=== PATIENT | female | born 1975 | race Caucasian/White ===

== ENCOUNTER → 2016-06-04 | Outpatient (CLI) | payer MEDICAID ==
[2016-06-04 07:43] LABS: Basophils % (A) 1 %; CH 30.8; CHCM 32.8; Eosinophils # (A) 0.1 k/uL (0-0.7); Eosinophils % (A) 2 %; HCT 40.7 % (34.0-46.0); HDW 2.47; HGB 13.1 gm/dL (11.4-16.0); Luc # (Auto) 0.07; Luc % (Auto) 1; Lymphocytes # (A) 1.4 k/uL (1.0-4.8); Lymphocytes % (A) 21 %; MCH 30.5 pg (25.0-35.0); MCHC 32.2 g/dL (31.0-37.0); MCV 94.6 fL (80.0-100.0); Mean Platelet Volume 8.7; Monocytes # (A) 0.3 k/uL (0-1.0); Monocytes % (A) 5 %; Neutrophils # (A) 4.6 k/uL (1.3-7.7); Neutrophils % (A) 71 %; RDW 13.3 % (11.5-15.5); WBC 6.4 k/uL (3.8-10.6); WBC (Perox) 6.74
[2016-06-04 07:52] LABS: Partial Thromboplastin Time 27.9 sec (22.0-30.0); Prothrombin Time 10.3 sec (9.0-12.0)
== END | disposition home or self-care (01) ==
LOC: LABWHC1 07:22
PROVIDERS: ATTEND Family Medicine
DX: Z00.01 Encounter for general adult medical examination with abnormal findings (principal); R58 Hemorrhage, not elsewhere classified; R63.1 Polydipsia; E00.0 Congenital iodine-deficiency syndrome, neurological type
CPT/HCPCS: 36415; 80061; 82728; 82947; 84439; 84443; 85025; 85610; 85730

== ENCOUNTER → 2016-06-11 | Outpatient (CLI) | payer MEDICAID ==
--- NOTE | 2016-06-12 10:15 | MM ---
Reason for exam: screening (asymptomatic). Last mammogram was performed 1 year and 1 month ago. History: Patient is postmenopausal. Family history of breast cancer in paternal grandmother and breast cancer in maternal grandmother. Took hormonal contraceptives for 10 years. Physical Findings: A clinical breast exam by your physician is recommended on an annual basis and results should be correlated with mammographic findings. MG 3D Screening Mammo W/Cad Bilateral CC and MLO view(s) were taken. Prior study comparison: May 01, 2015, bilateral MG 3d diag mammo w/cad RANDAL. April 05, 2014, bilateral MG diagnostic mammo w CAD RANDAL. There are scattered fibroglandular densities. There is no discrete abnormality. No significant changes when compared with prior studies. ASSESSMENT: Negative, BI-RAD 1 RECOMMENDATION: Routine screening mammogram of both breasts in 1 year.
== END | disposition home or self-care (01) ==
LOC: RADMAMWWP 07:50
PROVIDERS: ATTEND Family Medicine
DX: Z12.31 Encounter for screening mammogram for malignant neoplasm of breast (principal)
CPT/HCPCS: 77063; G0202

== ENCOUNTER → 2016-09-14 | Outpatient (CLI) | payer MEDICAID | END | disposition home or self-care (01) | LOC: LABWHC1 07:27 | PROVIDERS: ATTEND Family Medicine | DX: R58 Hemorrhage, not elsewhere classified (principal) | CPT/HCPCS: 36415; 82533 ==

== ENCOUNTER 2017-02-12 15:12 | Observation (INO) | payer MEDICAID, OTHER ==
[2017-02-12] MEDS ORDERED: SODIUM CHLORIDE 0.9% 1,000 ML IV ONE (15:28)
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
[2017-02-12 16:05] LABS: Appearance,Urine Clear (Clear); Basophils % (A) 1 %; Bilirubin,Urine Negative (Negative); CH 31.9; CHCM 33.7; Eosinophils # (A) 0.1 k/uL (0-0.7); Eosinophils % (A) 2 %; Glucose,Urine (UA) Negative (Negative); HCT 38.3 % (34.0-46.0); HDW 2.29; HGB 12.8 gm/dL (11.4-16.0); Ketones,Urine Negative (Negative); Leukocyte Esterase,Urine Negative (Negative); Luc % (Auto) 2; Lymphocytes # (A) 1.1 k/uL (1.0-4.8); Lymphocytes % (A) 21 %; MCH 31.9 pg (25.0-35.0); MCHC 33.6 g/dL (31.0-37.0); MCV 95.2 fL (80.0-100.0); Mean Platelet Volume 8.6; Monocytes # (A) 0.3 k/uL (0-1.0); Monocytes % (A) 6 %; Neutrophils # (A) 3.7 k/uL (1.3-7.7); Neutrophils % (A) 68 %; Nitrite,Urine Negative (Negative); PH, Urine 5.5 (5.0-8.0); Protein,Urine Trace (Negative); RBC 4.02 m/uL (3.80-5.40); RDW 14.3 % (11.5-15.5); Specific Gravity,Urine 1.023 (1.001-1.035); UA Billing (MACRO vs. MICRO) CHEM; Urobilinogen,Urine <2.0 mg/dL (<2.0); WBC 5.4 k/uL (3.8-10.6); WBC (Perox) 5.52
[2017-02-12 16:17] LABS: Anion Gap 9 mmol/L; Blood Urea Nitrogen 17 mg/dL (7-17); Calcium 9.2 mg/dL (8.4-10.2); Carbon Dioxide 23 mmol/L (22-30); Chloride 107 mmol/L (98-107); Glucose 82 mg/dL (74-99); Non-African American GFR(MDRD) >60 (>60 ml/min/1.73 sqM); Potassium 4.3 mmol/L (3.5-5.1); Sodium 139 mmol/L (137-145)
--- NOTE | 2017-02-12 16:39 | XR ---
EXAMINATION TYPE: XR chest 2V DATE OF EXAM: 02/12/2017 COMPARISON: Prior chest x-ray 11/29/2012 HISTORY: TECHNIQUE: Frontal and lateral views of the chest are obtained. FINDINGS: There is no focal air space opacity, pleural effusion, or pneumothorax seen. The cardiac silhouette size is stable, patient is rotated which may accentuate the appearance. There are overly ing cardiac leads. The osseous structures are intact. IMPRESSION: No acute cardiopulmonary process.
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
[2017-02-12 17:07] LABS: Glucose,Whole Blood 80 mg/dL (75-99)
[2017-02-12] MEDS ORDERED: NALOXONE 0.4 MG/ML 1 ML VIAL IV PRN (17:13)
[2017-02-12] MEDS ORDERED: QUEtiapine 400 MG TAB PO SCH (21:45)
[2017-02-12] MEDS: lamoTRIgine 100 MG TAB PO SCH (22:13)
[2017-02-12] MEDS: TOPIRAMATE 25 MG TAB PO SCH (22:13)
[2017-02-12] MEDS: FLUoxetine HCL 20 MG CAP PO SCH (22:13)
[2017-02-13 08:16] VITALS: RESP 16
[2017-02-13] MEDS: FLUoxetine HCL 20 MG CAP PO SCH (08:28)
[2017-02-13] MEDS: lamoTRIgine 100 MG TAB PO SCH (08:28)
[2017-02-13] MEDS: TOPIRAMATE 25 MG TAB PO SCH (08:28)
[2017-02-13] MEDS: ENOXAPARIN 40 MG/0.4 ML SYRINGE SQ SCH ×2 (08:29→08:30)
[2017-02-13 08:43] LABS: Basophils % (A) 1 %; CH 30.4; CHCM 31.5; Eosinophils # (A) 0.1 k/uL (0-0.7); Eosinophils % (A) 2 %; HCT 40.3 % (34.0-46.0); HDW 2.26; HGB 12.8 gm/dL (11.4-16.0); Luc % (Auto) 2; Lymphocytes # (A) 1.5 k/uL (1.0-4.8); Lymphocytes % (A) 25 %; MCH 30.8 pg (25.0-35.0); MCHC 31.8 g/dL (31.0-37.0); MCV 96.9 fL (80.0-100.0); Monocytes # (A) 0.3 k/uL (0-1.0); Monocytes % (A) 5 %; Neutrophils # (A) 3.9 k/uL (1.3-7.7); Neutrophils % (A) 66 %; RBC 4.16 m/uL (3.80-5.40); RDW 13.4 % (11.5-15.5); WBC 5.9 k/uL (3.8-10.6); WBC (Perox) 6.02
[2017-02-13 09:15] LABS: Anion Gap 10 mmol/L; Blood Urea Nitrogen 11 mg/dL (7-17); Calcium 9.4 mg/dL (8.4-10.2); Carbon Dioxide 25 mmol/L (22-30); Chloride 107 mmol/L (98-107); Glucose 111 mg/dL (74-99); Non-African American GFR(MDRD) 59 (>60 ml/min/1.73 sqM); Sodium 142 mmol/L (137-145)
[2017-02-13 12:10] VITALS: BP 107/67; PULSE 71; TEMP 98.1
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
--- NOTE | 2017-02-14 14:27 | DS ---
DISCHARGE SUMMARY DATE OF DISCHARGE: 02/13/2017. DATE OF SERVICE: February 13 2017. ATTENDING NOTE: This patient seen and examined by me. I discussed with my nurse practitioner Ms. Bender. For more details see my H&P, the patient doing better. EXAM: Lungs are clear. CARDIOVASCULAR: First and second sounds normal. No neurological deficits The patient to follow up with family doctor. Patient has near-syncope probably from exhaustion. MMODL / IJN: [id number] /
== END 2017-02-13 13:55 | disposition home or self-care (01) ==
LOC: EC 15:12 → 3OBS 17:16
PROVIDERS: ADMIT Hospitalist; ATTEND Hospitalist
DX: R55 Syncope and collapse (principal); R53.83 Other fatigue; R09.81 Nasal congestion; F31.9 Bipolar disorder, unspecified; F41.9 Anxiety disorder, unspecified; G25.81 Restless legs syndrome; Z68.42 Body mass index [BMI] 45.0-49.9, adult; E66.01 Morbid (severe) obesity due to excess calories; M79.7 Fibromyalgia; E03.9 Hypothyroidism, unspecified; G43.909 Migraine, unspecified, not intractable, without status migrainosus; G47.33 Obstructive sleep apnea (adult) (pediatric); Z79.899 Other long term (current) drug therapy; Z79.01 Long term (current) use of anticoagulants; K21.9 Gastro-esophageal reflux disease without esophagitis; Z82.49 Family history of ischemic heart disease and other diseases of the circulatory system; V48.0XXA Car driver injured in noncollision transport accident in nontraffic accident, initial encounter; Y92.488 Other paved roadways as the place of occurrence of the external cause; R73.9 Hyperglycemia, unspecified
CPT/HCPCS: 36415; 70450; 71020; 80048; 80306; 81003; 84484; 85025; 93005; 93880; 96360; 96361; 99285

== ENCOUNTER 2018-07-07 17:41 | Emergency (ER) | payer MEDICAID ==
[2018-07-07 18:07] VITALS: RESP 18
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
--- NOTE | 2018-07-07 19:38 | ED ---
Lower Extremity Injury HPI - General Chief Complaint: Extremity Injury, Lower Stated Complaint: Foot injury Time Seen by Provider: 07/07/18 18:14 Source: patient Mode of arrival: ambulatory Limitations: no limitations - History of Present Illness Initial Comments: 42-year-old female presenting today for chief complaint of left ankle injury. Patient states she slipped on ice earlier today rolling her left ankle. Patient denies any pain in the knee, she did state she fell on her bottom, denies any back or neck pain. She denies any head or neck injury. Patient denies any chest pain, dizziness or shortness of breath prior to falling. Patient admitted to left ankle swelling. She states pain increased with ambulation. Patient states she is able to range however this is painful. Patient denies any numbness, tingling or loss sensation. Patient denies any coolness or pallor of the extremity. Patient concerned of fracture and presents for evaluation. Upon arrival patient is ambulatory however limping, not fully weightbearing on the left side. Patient denies any recent fever, chills, shortness of breath, chest pain, back pain, abdominal pain, nausea or vomiting, numbness or tingling, dysuria or hematuria, constipation or diarrhea, headaches or visual changes, or any other complaints. Pt took ibuprofen prior to arrival. - Related Data Home Medications Medication Instructions Recorded Confirmed FLUoxetine HCL [PROzac] 80 mg PO DAILY 02/21/16 02/12/17 lamoTRIgine [LaMICtal] 200 mg PO BID 02/21/16 02/12/17 rOPINIRole HCL 0.5 mg PO HS 02/21/16 02/12/17 QUEtiapine [SEROquel] 400 mg PO HS 02/12/17 02/12/17 Topiramate 50 mg PO BID 02/12/17 02/12/17 Previous Rx's Medication Instructions Recorded Enoxaparin [Lovenox] 40 mg SQ DAILY syr 02/13/17 Allergies Allergy/AdvReac Type Severity Reaction Status Date / Time No Known Allergies Allergy Verified 07/07/18 18:02 Review of Systems ROS Statement: Those systems with pertinent positive or pertinent negative responses have been documented in the HPI. ROS Other: All systems not noted in ROS Statement are negative. Past Medical History Past Medical History: GERD/Reflux, Sleep Apnea/CPAP/BIPAP Additional Past Medical History / Comment(s): MIGRAINES, NO CPAP USED-UNABLE TO TOLERATE IT, History of Any Multi-Drug Resistant Organisms: None Reported Past Surgical History: Section, Cholecystectomy, Hysterectomy Additional Past Surgical History / Comment(s): 3 C-SEC, 3 SEPARATE SX TO COMPLETE TOTAL HYSTERECTOMY, COLONOSCOPY/POLYPS Past Anesthesia/Blood Transfusion Reactions: No Reported Reaction Past Psychological History: Anxiety, Bipolar, Depression Smoking Status: Never smoker Past Alcohol Use History: None Reported Past Drug Use History: None Reported - Past Family History Father Family Medical History: Hypertension Mother Additional Family Medical History / Comment(s): OVARIAN CYST General Exam - General Exam Comments Initial Comments: General: The patient is awake and alert, in no distress, and does not appear acutely ill. Eye: Pupils are equal, round and reactive to light, extra-ocular movements are intact. No nystagmus. There is normal conjunctiva bilaterally. No signs of icterus. Ears, nose, mouth and throat: There are moist mucous membranes and no oral lesions. Neck: The neck is supple, there is no tenderness or JVD. Cardiovascular: There is a regular rate and rhythm. No murmur, rub or gallop is appreciated. Respiratory: Lungs are clear to auscultation, respirations are non-labored, breath sounds are equal. No wheezes, stridor, rales, or rhonchi. Gastrointestinal: Soft, non-distended, non-tender abdomen without masses or organomegaly noted. There is no rebound or guarding present. Musculoskeletal: No midline tenderness to palpation of the entire length the spinal column. No paravertebral tenderness. Upon inspection of the ankles bilaterally there is mild soft tissue swelling of the left at the lateral malleolus. There is no pain to palpation the forefoot. There is pain to palpation of the lateral malleolus, no medial malleolus pain. Patient has no pain with patient of the proximal tibia fibula. Patient is able to fully range at the ankle, knee hip and digits of the feet equal bilaterally. Patient does admit to tenderness with range of motion at the left ankle. Patient can ambulate and weight bear however she states this is painful.Strength 5/5 of the LE proximal and distal to injuyr equal b/l. Sensation intact of the LE both proximal and distal to injury equal in comparison b/l. DP pulses equal bilaterally 2+. Neurological: A&O x 3. CN II-XII intact, There are no obvious motor or sensory deficits. Coordination appears grossly intact. Speech is normal. Skin: Skin is warm and dry and no rashes or lesions are noted. Psychiatric: Cooperative, appropriate mood & affect, normal judgment. Limitations: no limitations Course Vital Signs 07/07/18 07/07/18 18:02 19:57 Temperature 98.5 F 97.3 F L Pulse Rate 79 78 Respiratory 18 18 Rate Blood Pressure 116/68 142/65 O2 Sat by Pulse 98 97 Oximetry Medical Decision Making - Medical Decision Making 42-year-old female presenting today for chief complaint of left ankle pain. X- ray negative for acute osseous injury. Patient neurovascular intact. History concerning for left ankle sprain. Patient placed in posterior mold splint. Patient given orthopedic follow-up. Patient discharged stable condition. Discussed case reviewed imaging with attending provider Dr. Sparrow. Patient agreeable plan discharge. Return for wrist were discussed at length the patient who verbalizes understanding. Disposition Clinical Impression: Left ankle sprain Disposition: HOME SELF-CARE Condition: Good Instructions (If sedation given, give patient instructions): Ankle Sprain (ED) , R.I.C.E. Treatment (ED) Additional Instructions: Please use medication as discussed. Please follow-up with family doctor in the next 2 days, if symptoms persist please follow-up with orthopedic surgery. Please return to emergency room if the symptoms increase or worsen or for any other concerns. Is patient prescribed a controlled substance at d/c from ED?: No Referrals: West Lara DO [Primary Care Provider] - 1-2 days Hiren Alexander DO [Doctor of Osteopathic Medicine] - 1-2 days Time of Disposition: 19:37
[2018-07-07 19:58] VITALS: BP 142/65; PULSE 78; TEMP 97.3
== END 2018-07-07 20:00 | disposition home or self-care (01) ==
LOC: EC 17:41
DX: S93.402A Sprain of unspecified ligament of left ankle, initial encounter (principal); G43.909 Migraine, unspecified, not intractable, without status migrainosus; F41.9 Anxiety disorder, unspecified; F32.9 Major depressive disorder, single episode, unspecified; G47.30 Sleep apnea, unspecified; Z99.89 Dependence on other enabling machines and devices; Z79.899 Other long term (current) drug therapy; W00.0XXA Fall on same level due to ice and snow, initial encounter; Y92.009 Unspecified place in unspecified non-institutional (private) residence as the place of occurrence of the external cause
CPT/HCPCS: 29515; 99283

== ENCOUNTER 2020-10-11 07:44 | Day surgery (SDC) | payer MEDICAID ==
[2020-10-09 12:15] VITALS: BMI 52.0
[2020-10-11] MEDS: LACTATED RINGERS 1,000 ML IV SCH ×2 (07:59→08:15)
[2020-10-11] MEDS ORDERED: LIDOCAINE 1% (10MG/ML) FOR IV START INTRADERMA ONE (08:10)
[2020-10-11 08:15] VITALS: TEMP 97.1
[2020-10-11] MEDS ORDERED: PROPOFOL 10 MG/ML 20 ML VIAL IV ONE (08:25)
[2020-10-11] MEDS ORDERED: LIDOCAINE 1% INJ 10MG/ML (20 ML MDV) ONE (08:25)
--- NOTE | 2020-10-11 08:44 | P.PCN ---
Date of Procedure: 10/11/20 Procedure(s) Performed: Brief history: Patient is a pleasant 44-year-old white female scheduled for an elective upper endoscopy as well as colonoscopy as a part of evaluation of intermittent dysphagia to solids, gradually and prior history of colon polyps. Last coloscopy was 3 years ago. Procedure performed: Esophagogastroduodenoscopy with biopsy Colonoscopy Preoperative diagnosis: GERD/intermittent dysphagia to solids History of colon polyps Anesthesia: [facility] [place] Procedure: After informed consent was obtained from the patient was brought into the endoscopy unit and IV sedation was administered by anesthesia under continuous monitoring. Initially upper endoscopy was done. The Olympus GF 160 video endoscope was inserted inserted into the mouth and esophagus intubated without any difficulty and was gradually advanced into the stomach and duodenum and carefully examined. The bulb and second part of the duodenum appeared normal. The scope was then withdrawn into the stomach adequately insufflated with air and upon careful examination the antrum and a small superficial 5 mm ulcer that was biopsied. There were several scattered erosions identified in the antrum. Rest of the body, cardia and fundus appeared normal. The scope was then withdrawn into the esophagus. The GE junction was located at 40 cm to the incisors. It appeared regular with no erythema erosions or ulcerations. Rest of the esophagus appeared normal. Patient tolerated the procedure well. At this time the patient continued to remain sedation. Initial digital rectal examination was normal. Olympus CF 160 video colonoscope was then inserted into the rectum and gradually advanced to the cecum without any difficulty. Careful examination was performed as the scope was gradually being withdrawn. The prep was excellent. The cecum, ascending colon, transverse colon, descending colon, sigmoid colon and rectum appeared normal. Retroflexion was performed in the rectum and no lesions were noted. Patient tolerated the procedure well. Impression: 1. Upper endoscopy revealed antral erosive gastritis and a superficial 5 mm antral ulcers status post biopsy. No evidence of esophageal stricture 2. Colonoscopy was within normal limits with no evidence of colitis or colorectal neoplasia Recommendations: Findings of this examination were discussed with the patient as well as. Her family. She was advised to follow with the biopsy results. In the meantime she'll continue with omeprazole 20 mg daily and avoid NSAIDs. She can have a repeat surveillance colonoscopy in 5 years from now because of the prior history of colon polyps.
[2020-10-11] MEDS ORDERED: ONDANSETRON 4 MG/2 ML VIAL ONE (09:04)
[2020-10-11] MEDS ORDERED: ONDANSETRON 4 MG/2 ML VIAL IVP ONE (09:06)
[2020-10-11 09:10] VITALS: BP 105/68; PULSE 65; RESP 16
== END 2020-10-11 09:35 | disposition home or self-care (01) ==
LOC: ORWHC2ENDO 07:44
PROVIDERS: ATTEND Internal Medicine Gastroenterology
DX: R13.10 Dysphagia, unspecified (principal); Z12.11 Encounter for screening for malignant neoplasm of colon; Z86.010 Personal history of colon polyps; E07.9 Disorder of thyroid, unspecified; M79.7 Fibromyalgia; E66.9 Obesity, unspecified; Z79.899 Other long term (current) drug therapy
CPT/HCPCS: 88305; 43239; J2405; J2001; J2704; G0105; 45378

== ENCOUNTER → 2020-10-18 | Outpatient (CLI) | payer MEDICAID ==
--- NOTE | 2020-10-23 12:50 | MM ---
Reason for exam: screening (asymptomatic). Last mammogram was performed 4 years and 4 months ago. History: Patient is postmenopausal. Family history of breast cancer in paternal grandmother and breast cancer in maternal grandmother. Took hormonal contraceptives for 10 years. Physical Findings: A clinical breast exam by your physician is recommended on an annual basis and results should be correlated with mammographic findings. MG 3D Screening Mammo W/Cad Bilateral CC and MLO view(s) were taken. Prior study comparison: June 11, 2016, bilateral MG 3d screening mammo w/cad. May 01, 2015, bilateral MG 3d diag mammo w/cad RANDAL. There are scattered fibroglandular densities. ASSESSMENT: Benign, BI-RAD 2 RECOMMENDATION: Routine screening mammogram of both breasts in 1 year.
== END | disposition home or self-care (01) ==
LOC: RADMAMWWP 13:55
PROVIDERS: ATTEND Family Medicine
DX: Z12.31 Encounter for screening mammogram for malignant neoplasm of breast (principal); Z78.0 Asymptomatic menopausal state; Z80.3 Family history of malignant neoplasm of breast
CPT/HCPCS: 77063; 77067

== ENCOUNTER → 2021-05-19 | Outpatient (CLI) | payer MEDICAID, OTHER | END | disposition home or self-care (01) | LOC: LABWHC1 09:10 | PROVIDERS: ATTEND Emergency Medicine | DX: Z20.822 Contact with and (suspected) exposure to COVID-19 (principal) | CPT/HCPCS: 87635 ==

== ENCOUNTER → 2021-05-20 | Outpatient (CLI) | payer MEDICAID, OTHER | END | disposition home or self-care (01) | LOC: LABWHC1 09:03 | PROVIDERS: ATTEND Emergency Medicine | DX: Z20.822 Contact with and (suspected) exposure to COVID-19 (principal) | CPT/HCPCS: 87635 ==

== ENCOUNTER → 2021-12-24 | Outpatient (CLI) | payer MEDICAID ==
--- NOTE | 2021-12-24 10:11 | CA ---
Transthoracic Echo Report Name: Rylee Mcgee Age: 46 Gender: F : 1975 Exam Date: 12/24/2021 08:31 Exam Location: [place] [facility] Ht (in): 61 Wt (lb): 280 Ordering Physician: West Lara DO Attending/Referring Phys: Licensed Practical Vocational Nurse Frances Trinidad RDCS Procedure CPT: Indications: Z82.49 FAMILY HX OF ISCHEM HEART DIS Cardiac Hx: Technical Quality: Fair Contrast 1: Total Dose (mL): Contrast 2: Total Dose (mL): MEASUREMENTS (Male / Female) Normal Values 2D ECHO LV Diastolic Diameter PLAX 4.4 cm 4.2 - 5.9 / 3.9 - 5.3 cm LV Systolic Diameter PLAX 3.9 cm IVS Diastolic Thickness 1.0 cm 0.6 - 1.0 / 0.6 - 0.9 cm LVPW Diastolic Thickness 1.4 cm 0.6 - 1.0 / 0.6 - 0.9 cm LV Relative Wall Thickness 0.5 RV Internal Dim ED PLAX 3.1 cm M-MODE Aortic Root Diameter MM 2.7 cm LA Systolic Diameter MM 3.8 cm LA Ao Ratio MM 1.4 MV E Point Septal Separation 0.7 cm AV Cusp Separation MM 2.2 cm DOPPLER MV Area PHT 3.5 cm??? Mitral E Point Velocity 74.1 cm/s Mitral A Point Velocity 78.3 cm/s Mitral E to A Ratio 0.9 MV Deceleration Time 214.5 ms MV E' Velocity 6.3 cm/s Mitral E to MV E' Ratio 11.8 TR Peak Velocity 204.0 cm/s TR Peak Gradient 16.6 mmHg Right Ventricular Systolic Press 20.9 mmHg FINDINGS Left Ventricle Left ventricular ejection fraction is estimated at 50-55 %. Right Ventricle Normal right ventricular size and function. Right Atrium Normal right atrial size. Left Atrium Normal left atrial size. Mitral Valve Structurally normal mitral valve. Mild mitral regurgitation. Aortic Valve Trileaflet aortic valve. Tricuspid Valve Structurally normal tricuspid valve. Mild tricuspid regurgitation. Pulmonic Valve Pulmonic valve not well visualized. Pericardium Normal pericardium. Aorta Normal size aortic root and proximal ascending aorta. CONCLUSIONS Normal LV size and systolic function Mild mitral and tricuspid regurgitation Previewed by: Dr. Armand Rai MD (Electronically Signed) Final Date: 24 December 2021 10:10
== END | disposition home or self-care (01) ==
LOC: RADECHMAIN 08:24
PROVIDERS: ATTEND Family Medicine
DX: I08.1 Rheumatic disorders of both mitral and tricuspid valves (principal); Z82.49 Family history of ischemic heart disease and other diseases of the circulatory system
CPT/HCPCS: 93306

== ENCOUNTER 2022-04-29 13:14 | Inpatient (IN) | payer MEDICAID ==
[2022-04-29] MEDS ORDERED: IBUPROFEN 800 MG TAB PO STA (18:05)
[2022-04-29] MEDS ORDERED: ACETAMINOPHEN TAB 500 MG TAB PO STA (18:05)
[2022-04-29] MEDS ORDERED: SODIUM CHLORIDE 0.9% 500 ML 500 ML IV ONE (18:05)
--- NOTE | 2022-04-29 18:13 | ED ---
General Adult HPI - General Chief complaint: Shortness of Breath Stated complaint: Low O2 Time Seen by Provider: 04/29/22 17:38 Source: patient, RN notes reviewed, old records reviewed Mode of arrival: ambulatory Limitations: no limitations - History of Present Illness Initial comments: This is a 46-year-old female presents emergency department stating that she has been having a cough and shortness of breath and having body aches for the last few days. Patient states she thinks she has a fever but she didn't take her temperature. Patient denies any chest pain or palpitations. Patient has a COVID vaccine. Patient has a flu vaccine. Patient states her 's been sick lately and she thinks she got what he has. Patient denies any abdominal pain patient denies nausea vomiting diarrhea. Patient has any back pain. Headedness or dizziness. Patient denies any headache patient denies numbness or weakness. - Related Data Home Medications Medication Instructions Recorded Confirmed FLUoxetine HCL [PROzac] 80 mg PO DAILY 02/21/16 10/11/20 lamoTRIgine [LaMICtal] 200 mg PO BID 02/21/16 10/11/20 rOPINIRole HCL [Requip] 1 mg PO HS 02/21/16 10/11/20 QUEtiapine [SEROquel] 200 mg PO HS 02/12/17 10/11/20 Gabapentin [Neurontin] 300 mg PO DIRECTED PRN 10/09/20 10/11/20 Levothyroxine Sodium [Synthroid] 350 mcg PO DAILY 10/09/20 10/11/20 Methylphenidate HCl [Ritalin] 20 mg PO TID 10/09/20 10/11/20 Allergies Allergy/AdvReac Type Severity Reaction Status Date / Time No Known Allergies Allergy Verified 04/29/22 13:48 Review of Systems ROS Statement: Those systems with pertinent positive or pertinent negative responses have been documented in the HPI. ROS Other: All systems not noted in ROS Statement are negative. Past Medical History Past Medical History: Fibromyalgia, GERD/Reflux, Sleep Apnea/CPAP/BIPAP, Thyroid Disorder Additional Past Medical History / Comment(s): MIGRAINES, NO CPAP USED-UNABLE TO TOLERATE IT, dysphagia w/meds recently, hx. colon polyps History of Any Multi-Drug Resistant Organisms: None Reported Past Surgical History: Appendectomy, Section, Cholecystectomy, Hysterectomy Additional Past Surgical History / Comment(s): 3 C-SEC, 3 SEPARATE SX TO COMPLETE TOTAL HYSTERECTOMY, COLONOSCOPY/POLYPS Past Anesthesia/Blood Transfusion Reactions: No Reported Reaction Past Psychological History: Anxiety, Bipolar, Depression Smoking Status: Never smoker Past Alcohol Use History: None Reported Past Drug Use History: None Reported - Past Family History Father Family Medical History: Hypertension Mother Additional Family Medical History / Comment(s): OVARIAN CYST General Exam - General Exam Comments Initial Comments: GENERAL: Patient is well-developed and well-nourished. Patient is nontoxic and well- hydrated and is in mild distress. Patient felt warm so he took the patient's temperature patient had 100.1 t ENT: Neck is soft and supple. No significant lymphadenopathy is noted. Oropharynx is clear. Moist mucous membranes. Neck has full range of motion without eliciting any pain. EYES: The sclera were anicteric and conjunctiva were pink and moist. Extraocular movements were intact and pupils were equal round and reactive to light. Eyelids were unremarkable. PULMONARY: Patient has crackles in the left base. CARDIOVASCULAR: There is a regular rate and rhythm without any murmurs gallops or rubs. ABDOMEN: Soft and nontender with normal bowel sounds. SKIN: Skin is clear with no lesions or rashes and otherwise unremarkable. NEUROLOGIC: Patient is alert and oriented x3. Cranial nerves II through XII are grossly intact. Motor and sensory are also intact. Normal speech, volume and content. Symmetrical smile. MUSCULOSKELETAL: Normal extremities with adequate strength and full range of motion. LYMPHATICS: No significant lymphadenopathy is noted PSYCHIATRIC: Normal psychiatric evaluation. Limitations: no limitations Course Vital Signs 04/29/22 04/29/22 04/29/22 13:45 18:34 19:24 Temperature 97.7 F Pulse Rate 92 98 Respiratory 20 18 20 Rate Blood Pressure 121/82 O2 Sat by Pulse 93 L 95 Oximetry 04/29/22 19:40 Temperature 98.9 F Pulse Rate 84 Respiratory 20 Rate Blood Pressure O2 Sat by Pulse 93 L Oximetry Medical Decision Making - Medical Decision Making X-ray of the chest was interpreted by me. X-ray the chest shows a left upper left lower lobe pneumonia. I started the patient and advised the emergency department patient got Rocephin and Zithromax. Patient was having quite a bit of coughing and short of breath just lying in bed so patient was uncomfortable going home. I spoke with [facility] hospice agreed to admit the patient admitted the patient wrote admitting orders and continue antibiotic on the floor. - Lab Data Result diagrams: 04/29/22 18:30 04/29/22 18:30 Lab Results 04/29/22 04/29/22 04/29/22 Range/Units 18:30 18:30 18:30 WBC 12.7 H (3.8-10.6) k/uL RBC 4.67 (3.80-5.40) m/uL Hgb 14.4 (11.4-16.0) gm/dL Hct 41.5 (34.0-46.0) % MCV 89.0 (80.0-100.0) fL MCH 30.8 (25.0-35.0) pg MCHC 34.7 (31.0-37.0) g/dL RDW 13.9 (11.5-15.5) % Plt Count (150-450) k/uL MPV 11.4 Neutrophils % 80 % Lymphocytes % 11 % Monocytes % 5 % Eosinophils % 1 % Basophils % 1 % Neutrophils # 10.1 H (1.3-7.7) k/uL Lymphocytes # 1.4 (1.0-4.8) k/uL Monocytes # 0.7 (0-1.0) k/uL Eosinophils # 0.1 (0-0.7) k/uL Basophils # 0.1 (0-0.2) k/uL Manual Slide Review Performed Large Platelets Present RBC Morphology Normal Sodium 136 L (137-145) mmol/L Potassium 5.1 (3.5-5.1) mmol/L Chloride 103 (98-107) mmol/L Carbon Dioxide 21 L (22-30) mmol/L Anion Gap 12 mmol/L BUN 10 (7-17) mg/dL Creatinine 0.83 (0.52-1.04) mg/dL Est GFR (CKD-EPI)AfAm >90 (>60 ml/min/1.73 sqM) Est GFR (CKD-EPI)NonAf 84 (>60 ml/min/1.73 sqM) Glucose 101 H (74-99) mg/dL Plasma Lactic Acid Eagle (0.7-2.0) mmol/L Calcium 8.6 (8.4-10.2) mg/dL Total Bilirubin 1.6 H (0.2-1.3) mg/dL AST 56 H (14-36) U/L ALT 43 H (4-34) U/L Alkaline Phosphatase 108 (38-126) U/L Total Protein 7.8 (6.3-8.2) g/dL Albumin 4.2 (3.5-5.0) g/dL Influenza Type A (PCR) Not Detected (Not Detectd) Influenza Type B (PCR) Not Detected (Not Detectd) RSV (PCR) Detected A (Not Detectd) SARS-CoV-2 (PCR) Not Detected (Not Detectd) 04/29/22 Range/Units 20:33 WBC (3.8-10.6) k/uL RBC (3.80-5.40) m/uL Hgb (11.4-16.0) gm/dL Hct (34.0-46.0) % MCV (80.0-100.0) fL MCH (25.0-35.0) pg MCHC (31.0-37.0) g/dL RDW (11.5-15.5) % Plt Count (150-450) k/uL MPV Neutrophils % % Lymphocytes % % Monocytes % % Eosinophils % % Basophils % % Neutrophils # (1.3-7.7) k/uL Lymphocytes # (1.0-4.8) k/uL Monocytes # (0-1.0) k/uL Eosinophils # (0-0.7) k/uL Basophils # (0-0.2) k/uL Manual Slide Review Large Platelets RBC Morphology Sodium (137-145) mmol/L Potassium (3.5-5.1) mmol/L Chloride (98-107) mmol/L Carbon Dioxide (22-30) mmol/L Anion Gap mmol/L BUN (7-17) mg/dL Creatinine (0.52-1.04) mg/dL Est GFR (CKD-EPI)AfAm (>60 ml/min/1.73 sqM) Est GFR (CKD-EPI)NonAf (>60 ml/min/1.73 sqM) Glucose (74-99) mg/dL Plasma Lactic Acid Eagle 0.9 (0.7-2.0) mmol/L Calcium (8.4-10.2) mg/dL Total Bilirubin (0.2-1.3) mg/dL AST (14-36) U/L ALT (4-34) U/L Alkaline Phosphatase (38-126) U/L Total Protein (6.3-8.2) g/dL Albumin (3.5-5.0) g/dL Influenza Type A (PCR) (Not Detectd) Influenza Type B (PCR) (Not Detectd) RSV (PCR) (Not Detectd) SARS-CoV-2 (PCR) (Not Detectd) Disposition Clinical Impression: Left upper lobe pneumonia, Left lower lobe pneumonia, RSV (acute bronchiolitis due to respiratory syncytial virus) Disposition: ADMITTED IP TO THIS HOSP Referrals: West Lara DO [Primary Care Provider] - 1-2 days Time of Disposition: 20:49
[2022-04-29 18:43] LABS: Basophils # (A) 0.1 k/uL (0-0.2); Basophils % (A) 1 %; Eosinophils # (A) 0.1 k/uL (0-0.7); Eosinophils % (A) 1 %; HCT 41.5 % (34.0-46.0); HGB 14.4 gm/dL (11.4-16.0); Lymphocytes # (A) 1.4 k/uL (1.0-4.8); Lymphocytes % (A) 11 %; MCH 30.8 pg (25.0-35.0); MCHC 34.7 g/dL (31.0-37.0); Mean Platelet Volume 11.4; Monocytes # (A) 0.7 k/uL (0-1.0); Monocytes % (A) 5 %; Neutrophils # (A) 10.1 k/uL (1.3-7.7); Neutrophils % (A) 80 %; RBC 4.67 m/uL (3.80-5.40); RDW 13.9 % (11.5-15.5); WBC 12.7 k/uL (3.8-10.6)
[2022-04-29 19:00] LABS: ALT 43 U/L (4-34); AST 56 U/L (14-36); African American GFR (CKD) >90 (>60 ml/min/1.73 sqM); Albumin 4.2 g/dL (3.5-5.0); Alkaline Phosphatase 108 U/L (38-126); Anion Gap 12 mmol/L; Blood Urea Nitrogen 10 mg/dL (7-17); Calcium 8.6 mg/dL (8.4-10.2); Carbon Dioxide 21 mmol/L (22-30); Chloride 103 mmol/L (98-107); Glucose 101 mg/dL (74-99); Non-African American GFR(CKD) 84 (>60 ml/min/1.73 sqM); Sodium 136 mmol/L (137-145); Total Bilirubin 1.6 mg/dL (0.2-1.3); Total Protein 7.8 g/dL (6.3-8.2)
[2022-04-29 19:07] LABS: Potassium 5.1 mmol/L (3.5-5.1)
[2022-04-29 19:18] LABS: Large Platelets Present; RBC Morphology Normal
[2022-04-29] MEDS ORDERED: cefTRIAXone IN SWFI 1,000 MG/10 ML SYRINGE IVP STA (20:00)
[2022-04-29] MEDS ORDERED: SODIUM CHLORIDE 0.9% 1,000 ML IV ONE (20:02)
--- NOTE | 2022-04-29 20:04 | XR ---
EXAMINATION TYPE: XR chest 2V DATE OF EXAM: 04/29/2022 COMPARISON: 02/12/2017 HISTORY: Difficulty breathing TECHNIQUE: 2 views FINDINGS: There is some linear density in the left upper lobe. The right lung is clear. There is also some airspace infiltrate left lower lobe behind the heart. No pleural effusion. Bony thorax is intac t. IMPRESSION: There is evidence of left upper lobe and left lower lobe pneumonia which are a change com pared to old exam. No heart failure. Normal heart.
[2022-04-29] MEDS ORDERED: AZITHROMYCIN 500 MG TAB PO STA (20:09)
[2022-04-29] MEDS ORDERED: BENZONATATE 100 MG CAP PO STA (20:29)
[2022-04-29] MEDS ORDERED: ALBUTEROL HFA INHALER INHALATION STA (20:29)
[2022-04-29] MEDS ORDERED: PNEUMONIA PROTOCOL UTILIZED 1 EACH MISC PO PRN (20:50)
[2022-04-29] MEDS ORDERED: ALBUTEROL NEBULIZED 2.5 MG/3 ML INHALATION PRN (21:00)
[2022-04-30] MEDS ORDERED: METHYLPHENIDATE HCL 10 MG TAB PO PRN (00:17)
[2022-04-30] MEDS: QUEtiapine 200 MG TAB PO SCH ×2 (00:51→21:04)
--- NOTE | 2022-04-30 08:21 | P.HPIM ---
History of Present Illness This is a pleasant 38 years old female with multiple medical problems as below. Patient presents because of respiratory symptoms and hypoxia. Patient states that she was feeling sick since Wednesday, and sense of lightheadedness and d yspnea. She checked her pulse ox at home and was around 87s percent, so she got concerned and came to emergency room Patient this morning Embedded looks comfortable no significant tachypnea or dyspnea while at rest, occasional coughing but no chest pain. Also patient denies any diarrhea vomiting or abdominal pain, no dysuria or urgency or change in frequency, no dizziness but little headache, no weakness or numbness. No smoking or illicit drugs, occasional alcohol Vitals reviewed, patient is afebrile and currently she is saturating 94% on room air. She has mild leukocytosis of 12.7 K, rest of CBC, BMP is unremarkable. Bilirubin is 1.6 and liver enzymes mildly elevated with AST 56 and ALT 43. Influenza A and B, coronavirus, viruses are undetected RSV was detected Chest x-ray: Showing left upper lobe and left lower lobe infiltrate suspicious for pneumonia. I reviewed the chest x-ray by myself and did not see significant infiltrate On admission patient was started on ceftriaxone Emergency room received IV fluids, ceftriaxone, Zithromax and symptomatic treatment. Review of Systems Review of systems CONSTITUTIONAL: No fever, no malaise, no fatigue. HEENT: No recent visual problems or hearing problems. Denied any sore throat. CARDIOVASCULAR: No orthopnea, PND, no palpitations, no syncope. PULMONARY: No chest wall tenderness, no hemoptysis. GASTROINTESTINAL: No diarrhea, no nausea, no vomiting, no abdominal pain. Normoactive bowel sounds. NEUROLOGICAL: No headaches, no weakness, no numbness. HEMATOLOGICAL: Denies any bleeding or petechiae. GENITOURINARY: Denies any burning micturition, frequency, or urgency. MUSCULOSKELETAL/RHEUMATOLOGICAL: Denies any joint pain, swelling, or any muscle pain. ENDOCRINE: Denies any polyuria or polydipsia. Past Medical History Past Medical History: Fibromyalgia, GERD/Reflux, Sleep Apnea/CPAP/BIPAP, Thyroid Disorder Additional Past Medical History / Comment(s): MIGRAINES, NO CPAP USED-UNABLE TO TOLERATE IT, dysphagia w/meds recently, hx. colon polyps History of Any Multi-Drug Resistant Organisms: None Reported Past Surgical History: Appendectomy, Section, Cholecystectomy, Hysterectomy Additional Past Surgical History / Comment(s): 3 C-SEC, 3 SEPARATE SX TO COMPLETE TOTAL HYSTERECTOMY, COLONOSCOPY/POLYPS Past Anesthesia/Blood Transfusion Reactions: No Reported Reaction Past Psychological History: Anxiety, Bipolar, Depression Additional Psychological History / Comment(s): PT LIVES WITH SPOUSE AND 3 CHILDREN. HAS 2 CATS, 2 DOGS, 3 GUINNIE PIGS, 1 BIRD,BEARDED DRAGON,GEICO,SNAKE AND HERMIT CRAB. NO OUSIDE SERVICES AND NO MEDICAL EQUIPMENT. Smoking Status: Never smoker Past Alcohol Use History: None Reported Past Drug Use History: None Reported - Past Family History Father Family Medical History: Hypertension Mother Additional Family Medical History / Comment(s): OVARIAN CYST Medications and Allergies Home Medications Medication Instructions Recorded Confirmed Type Methylphenidate HCl [Ritalin] 20 mg PO TID PRN 10/09/20 04/29/22 History Levothyroxine Sodium [Tirosint] 200 mcg PO DAILY 04/29/22 04/29/22 History Omeprazole 20 mg PO DAILY 04/29/22 04/29/22 History Pregabalin 75 mg PO TID 04/29/22 04/29/22 History QUEtiapine [SEROquel] 200 mg PO HS 04/29/22 04/29/22 History rOPINIRole HCL [Requip] 1 mg PO HS 04/29/22 04/29/22 History Allergies Allergy/AdvReac Type Severity Reaction Status Date / Time No Known Allergies Allergy Verified 04/29/22 21:15 Physical Exam Vitals: Vital Signs Temp Pulse Pulse Resp BP BP Pulse Ox 04/30/22 02:00 97.7 F 87 17 102/72 94 L 04/29/22 23:00 97.4 F L 65 18 106/71 95 04/29/22 21:30 98.2 F 66 20 134/81 95 04/29/22 19:40 98.9 F 84 20 93 L 04/29/22 19:24 20 04/29/22 18:34 98 18 95 04/29/22 13:45 97.7 F 92 20 121/82 93 L Intake and Output 04/29/22 04/30/22 04/30/22 22:59 06:59 14:59 Other: # Voids 2 Weight 135.171 kg -GENERAL: The patient is alert and oriented x3, not in any acute distress. Obese HEENT: Pupils are round and equally reacting to light. EOMI. No scleral icterus. No conjunctival pallor. Normocephalic, atraumatic. No pharyngeal erythema. No thyromegaly. CARDIOVASCULAR: S1 and S2 present. No murmurs, rubs, or gallops. PULMONARY: Chest is clear to auscultation, no wheezing or crackles. ABDOMEN: Soft, nontender, nondistended, normoactive bowel sounds. No palpable organomegaly. MUSCULOSKELETAL: No joint swelling or deformity. EXTREMITIES: No cyanosis, clubbing, or pedal edema. NEUROLOGICAL: Gross neurological examination did not reveal any focal deficits. SKIN: No rashes. no petechiae. Results CBC & Chem 7: 04/29/22 18:30 04/29/22 18:30 Labs: Abnormal Lab Results - Last 24 Hours (Table) 04/29/22 04/29/22 04/29/22 Range/Units 18:30 18:30 18:30 WBC 12.7 H (3.8-10.6) k/uL Neutrophils # 10.1 H (1.3-7.7) k/uL Sodium 136 L (137-145) mmol/L Carbon Dioxide 21 L (22-30) mmol/L Glucose 101 H (74-99) mg/dL Total Bilirubin 1.6 H (0.2-1.3) mg/dL AST 56 H (14-36) U/L ALT 43 H (4-34) U/L RSV (PCR) Detected A (Not Detectd) Thrombosis Risk Factor Assmnt - Choose All That Apply Any of the Below Risk Factors Present?: Yes Each Factor Represents 1 point: Age 41-60 years, Obesity (BMI >25) Other Risk Factors: No Thrombosis Risk Factor Assessment Total Risk Factor Score: 2 Thrombosis Risk Factor Assessment Level: Low Risk Assessment and Plan Assessment: possible Community acquired pneumonia positive RSV test acute hypoxic respiratory failure secondary to above, present on admission. Currently improved Obesity with BMI of 54.5 Hypothyroidism History of gastroesophageal reflux disease History of migraine History of fibromyalgia Hypothyroidism Anxiety, bipolar and depression by history. Not an active fissure. Plan: Continue with bronchodilator Continue with antibiotics Continue with oxygen as needed Pulmonary team consult. Chest x-ray this morning Follow-up culture results from multiple blood as possible check pro-calcitonin Labs and medication were reviewed.. Continue same treatment. Continue with symptomatic treatment. Resume home medication. Monitor labs and vitals. DVT and GI prophylaxis. Further recommendations as per clinical course of the patient DVT prophylaxis: Subcutaneous heparin GI Prophylaxis: Pepcid PT/OT: Pending Prognosis is guarded
[2022-04-30] MEDS: LEVOTHYROXINE 100 MCG TAB PO SCH (08:40)
[2022-04-30] MEDS: PREGABALIN 75 MG CAP PO SCH ×3 (08:40→21:04)
--- NOTE | 2022-04-30 09:20 | XR ---
EXAMINATION TYPE: XR chest 2V DATE OF EXAM: 04/30/2022 COMPARISON: 04/29/2022 TECHNIQUE: PA and lateral views submitted. HISTORY: Cough FINDINGS: Nodular appearing area of consolidation left upper lobe. Heart size normal. Subsegmental changes left lung base. No pleural effusion or pneumothorax. No overt failure. Hypertrophic and degenerative gonzalez ge of the spine. IMPRESSION: 1. Left upper lobe and lower lobe areas of infiltrate stable. Follow the resolution to exclude underl mayuri neoplasm with particular attention to the left upper lobe.
[2022-04-30] MEDS: AZITHROMYCIN 500 MG TAB PO SCH (10:05)
[2022-04-30] MEDS: methylPREDNISolone SOD SUCCI 40 MG/ML 1 ML VIAL IV SCH ×2 (10:05→15:25)
--- NOTE | 2022-04-30 11:43 | P.CNPUL ---
History of Present Illness Consult date: 04/30/22 Requesting physician: Kenny Cerna Reason for consult: dyspnea, abnormal CXR/CT Chief complaint: Shortness of breath, cough, congestion History of present illness: This a very pleasant 46-year-old female patient with a known history of fibromyalgia, gastroesophageal reflux disease, hypothyroidism, anxiety/depression, bipolar disorder Obstructive sleep apnea intolerant to CPAP, nonsmoker. She presented here to the emergency room yesterday with a 2-3 day history of increasing shortness of breath cough congestion body aches. She has received CoVID vaccine then a flu vaccine. Her had been sick recently. Chest x-ray revealed a left upper lobe and lower lobe infiltrates. White count 12.7. Hemoglobin 14.4. Sodium 136. Potassium 5.1. Bicarb 21. BUN 10. Creatinine 0.83. Lactic acid 0.9. AST 56. ALT 43. Influenza screen negative. COVID-19 screen negative. She did test positive for RSV. She is seen today in consultation on the regular medical floor. She's been up ambulating on room. Awake and alert in no acute distress. She continues with the loose nonprodu ctive cough. She is maintaining good O2 saturations in the 90s on room air. Afebrile. Review of Systems REVIEW OF SYSTEMS: CONSTITUTIONAL: Denies any recent significant weight loss or weight gain. EYES: Denies change in vision. EARS, NOSE, MOUTH, THROAT: Denies headaches, denies sore throat. CARDIOVASCULAR: Denies chest pain, palpitations or syncopal episodes. RESPIRATORY: Positive for shortness of breath, cough, congestion no hemoptysis. GASTROINTESTINAL: Denies change in appetite, denies abdominal pain GENITOURINARY: Denies hematuria, denies infections. MUSKULOSKELETAL: Denies pain, denies swelling. INTEGUMENTARY: Denies rash, denies eczema. NEUROLOGICAL: Denies recent memory loss, no recent seizure activity. PSYCHIATRIC: Denies anxiety, denies depression. HEMATOLOGIC/LYMPHATIC: Denies anemia, denies enlarged lymph nodes. Past Medical History Past Medical History: Fibromyalgia, GERD/Reflux, Sleep Apnea/CPAP/BIPAP, Thyroid Disorder Additional Past Medical History / Comment(s): MIGRAINES, NO CPAP USED-UNABLE TO TOLERATE IT, dysphagia w/meds recently, hx. colon polyps History of Any Multi-Drug Resistant Organisms: None Reported Past Surgical History: Appendectomy, Section, Cholecystectomy, Hysterectomy Additional Past Surgical History / Comment(s): 3 C-SEC, 3 SEPARATE SX TO COMPLETE TOTAL HYSTERECTOMY, COLONOSCOPY/POLYPS Past Anesthesia/Blood Transfusion Reactions: No Reported Reaction Past Psychological History: Anxiety, Bipolar, Depression Additional Psychological History / Comment(s): PT LIVES WITH SPOUSE AND 3 CHIL DREN. HAS 2 CATS, 2 DOGS, 3 GUINNIE PIGS, 1 BIRD,BEARDED DRAGON,GEICO,SNAKE AND HERMIT CRAB. NO OUSIDE SERVICES AND NO MEDICAL EQUIPMENT. Smoking Status: Never smoker Past Alcohol Use History: None Reported Past Drug Use History: None Reported - Past Family History Father Family Medical History: Hypertension Mother Additional Family Medical History / Comment(s): OVARIAN CYST Medications and Allergies Home Medications Medication Instructions Recorded Confirmed Type Methylphenidate HCl [Ritalin] 20 mg PO TID PRN 10/09/20 04/29/22 History Levothyroxine Sodium [Tirosint] 200 mcg PO DAILY 04/29/22 04/29/22 History Omeprazole 20 mg PO DAILY 04/29/22 04/29/22 History Pregabalin 75 mg PO TID 04/29/22 04/29/22 History QUEtiapine [SEROquel] 200 mg PO HS 04/29/22 04/29/22 History rOPINIRole HCL [Requip] 1 mg PO HS 04/29/22 04/29/22 History Allergies Allergy/AdvReac Type Severity Reaction Status Date / Time No Known Allergies Allergy Verified 04/29/22 21:15 Physical Exam Vitals: Vital Signs Temp Pulse Pulse Resp BP BP Pulse Ox 04/30/22 09:39 90 04/30/22 09:19 88 95 04/30/22 07:26 97.6 F 71 17 106/72 95 04/30/22 02:00 97.7 F 87 17 102/72 94 L 04/29/22 23:00 97.4 F L 65 18 106/71 95 04/29/22 21:30 98.2 F 66 20 134/81 95 04/29/22 19:40 98.9 F 84 20 93 L 04/29/22 19:24 20 04/29/22 18:34 98 18 95 04/29/22 13:45 97.7 F 92 20 121/82 93 L Intake and Output 04/29/22 04/30/22 04/30/22 22:59 06:59 14:59 Intake Total 50 Balance 50 Intake: Intake, IV Titration 50 Amount cefTRIAXone 2 gm In 50 Sodium Chloride 0.9% 50 ml @ 100 mls/hr IVPB Q24H [facility] Rx#:[id number] Other: # Voids 2 Weight 135.171 kg GENERAL EXAM: Alert, active, pleasant 46-year-old female, on room air, comfortable in no apparent distress. HEAD: Normocephalic. EYES: Normal reaction of pupils, equal size. NOSE: Clear with pink turbinates. THROAT: No erythema or exudates. NECK: No masses, no JVD. CHEST: No chest wall deformity. LUNGS: Equal air entry with few scattered rhonchi, end expiratory wheeze. CVS: S1 and S2 normal with no audible murmur, regular rhythm. ABDOMEN: No hepatosplenomegaly, normal bowel sounds, no guarding or rigidity. SPINE: No scoliosis or deformity SKIN: No rashes CENTRAL NERVOUS SYSTEM: No focal deficits, tone is normal in all 4 extremities. EXTREMITIES: There is no peripheral edema. No clubbing, no cyanosis. Peripheral pulses are intact. Results - Laboratory Findings CBC and BMP: 04/29/22 18:30 04/29/22 18:30 Abnormal lab findings: Abnormal Labs 04/29/22 04/29/22 04/29/22 18:30 18:30 18:30 WBC 12.7 H Neutrophils # 10.1 H Sodium 136 L Carbon Dioxide 21 L Glucose 101 H Total Bilirubin 1.6 H AST 56 H ALT 43 H RSV (PCR) Detected A - Diagnostic Findings Chest x-ray: image reviewed Assessment and Plan Assessment: Acute community acquired pneumonia, currently on ceftriaxone and azithromycin Acute RSV infection Morbid obesity, BMI 55 kg/m Obstructive sleep apnea intolerant to CPAP Fibromyalgia History of anxiety/depression History of bipolar disorder Hypothyroidism Plan: The patient was seen and evaluated Chest x-ray, labs and medications reviewed Continue ceftriaxone and azithromycin Check a pro-calcitonin Continue IV solu Medrol and bronchodilators Currently stable and on room air We'll continue to follow and make further recommendations based on her clinical status I have personally seen and examined the patient, performed the documentation and the assessment and plan as written. Number of minutes spent on the visit: 20.
[2022-04-30] MEDS: IPRATROPIUM-ALBUTEROL 3 ML NEB INHALATION SCH ×2 (12:16→21:24)
[2022-05-01] MEDS: methylPREDNISolone SOD SUCCI 40 MG/ML 1 ML VIAL IV SCH ×2 (01:30→09:33)
[2022-05-01] MEDS: LEVOTHYROXINE 100 MCG TAB PO SCH (05:17)
[2022-05-01] MEDS: IPRATROPIUM-ALBUTEROL 3 ML NEB INHALATION SCH ×2 (09:04→11:50)
[2022-05-01] MEDS: AZITHROMYCIN 500 MG TAB PO SCH (09:33)
[2022-05-01] MEDS: PREGABALIN 75 MG CAP PO SCH ×2 (09:33→15:49)
--- NOTE | 2022-05-01 11:35 | P.PN ---
Subjective Progress Note Date: 05/01/22 This a very pleasant 46-year-old female patient with a known history of fibromyalgia, gastroesophageal reflux disease, hypothyroidism, anxiety/depression, bipolar disorder Obstructive sleep apnea intolerant to CPAP, nonsmoker. She presented here to the emergency room yesterday with a 2-3 day history of increasing shortness of breath cough congestion body aches. She has received CoVID vaccine then a flu vaccine. Her had been sick recently. Chest x-ray revealed a left upper lobe and lower lobe infiltrates. White count 12.7. Hemoglobin 14.4. Sodium 136. Potassium 5.1. Bicarb 21. BUN 10. Creatinine 0.83. Lactic acid 0.9. AST 56. ALT 43. Influenza screen negative. COVID-19 screen negative. She did test positive for RSV. She is seen today in consultation on the regular medical floor. She's been up ambulating on room. Awake and alert in no acute distress. She continues with the loose nonproductive cough. She is maintaining good O2 saturations in the 90s on room air. Afebrile. The patient is seen today 05/01/2022 in follow-up on the regular medical floor. She is currently sitting up in bed. Awake and alert in no acute distress. She is breathing a bit better today compared to yesterday. Maintaining good O2 saturation in the mid 90s on room air. She's been maintained on DuoNeb inhalations, IV Solu-Medrol, antibiotics in the form of ceftriaxone. Objective - Vital Signs Vital signs: Vital Signs Temp 97.5 F L 05/01/22 08:00 Pulse 69 05/01/22 08:00 Resp 17 05/01/22 08:00 BP 133/84 05/01/22 08:00 Pulse Ox 95 05/01/22 09:04 FiO2 Intake & Output 04/30/22 05/01/22 05/01/22 18:59 06:59 18:59 Intake Total 50 Balance 50 Intake: Intake, IV Titration 50 Amount cefTRIAXone 2 gm In 50 Sodium Chloride 0.9% 50 ml @ 100 mls/hr IVPB Q24H [facility] Rx#:[id number] Other: Voiding Method Toilet Toilet # Voids 3 - Exam GENERAL EXAM: Alert, pleasant 46-year-old female, on room air, comfortable in no apparent distress. HEAD: Normocephalic. EYES: Normal reaction of pupils, equal size. NOSE: Clear with pink turbinates. THROAT: No erythema or exudates. NECK: No masses, no JVD. CHEST: No chest wall deformity. LUNGS: Equal air entry with few scattered rhonchi, end expiratory wheeze. CVS: S1 and S2 normal with no audible murmur, regular rhythm. ABDOMEN: No hepatosplenomegaly, normal bowel sounds, no guarding or rigidity. SPINE: No scoliosis or deformity SKIN: No rashes CENTRAL NERVOUS SYSTEM: No focal deficits, tone is normal in all 4 extremities. EXTREMITIES: There is no peripheral edema. No clubbing, no cyanosis. Peripheral pulses are intact. - Labs CBC & Chem 7: 04/29/22 18:30 04/29/22 18:30 Labs: Microbiology - Last 24 Hours (Table) 04/29/22 20:33 Blood Culture - Preliminary Blood No Growth after 24 hours 04/29/22 20:33 Blood Culture - Preliminary Blood No Growth after 24 hours Assessment and Plan Assessment: Acute community acquired pneumonia, currently on ceftriaxone Acute RSV infection Morbid obesity, BMI 55 kg/m Obstructive sleep apnea intolerant to CPAP Fibromyalgia History of anxiety/depression History of bipolar disorder Hypothyroidism Plan: The patient was seen and evaluated Stable and on room air Medications reviewed Cleared for discharge from the pulmonary standpoint Complete a prednisone taper starting at 40 mg daily for 4 days Complete a course of antibiotics in the form of Ceftin 5 days Follow up with Dr. Spaulding in 1 week I have personally seen and examined the patient, performed the documentation and the assessment and plan as written. Number of minutes spent on the visit: 10.
[2022-05-01] MEDS ORDERED: methylPREDNISolone SOD SUCCI 125 MG/2 ML VIAL IV SCH (12:00)
[2022-05-01 15:15] VITALS: BP 151/94; RESP 16; TEMP 97.6
[2022-05-01 15:42] VITALS: PULSE 77
[2022-05-01] MEDS ORDERED: CEFDINIR 300 MG CAP PO SCH (21:00)
[2022-05-02] MEDS ORDERED: predniSONE 20 MG TAB PO SCH (09:00)
== END 2022-05-01 16:19 | disposition home or self-care (01) | DRG 202 ==
LOC: EC 13:14 → 4SSUR 20:50
PROVIDERS: ADMIT Hospitalist; ATTEND Hospitalist
DX: J21.0 Acute bronchiolitis due to respiratory syncytial virus (principal); J18.9 Pneumonia, unspecified organism; J96.01 Acute respiratory failure with hypoxia; Z68.43 Body mass index [BMI] 50.0-59.9, adult; E03.9 Hypothyroidism, unspecified; E66.01 Morbid (severe) obesity due to excess calories; F31.9 Bipolar disorder, unspecified; M54.9 Dorsalgia, unspecified; M79.7 Fibromyalgia; G47.33 Obstructive sleep apnea (adult) (pediatric); F41.9 Anxiety disorder, unspecified; K21.9 Gastro-esophageal reflux disease without esophagitis; G43.909 Migraine, unspecified, not intractable, without status migrainosus; Z20.822 Contact with and (suspected) exposure to COVID-19; Z91.198 Patient's noncompliance with other medical treatment and regimen for other reason; Z79.899 Other long term (current) drug therapy; Z79.890 Hormone replacement therapy; Z87.42 Personal history of other diseases of the female genital tract
CPT/HCPCS: 36415; 71046; 80053; 83605; 84145; 85025; 87040; 87636; 94640; 94760; 96361; 96374; 96376; 99285

== ENCOUNTER → 2023-05-20 | Outpatient (CLI) | payer MEDICAID ==
--- NOTE | 2023-05-20 17:46 | XR ---
EXAMINATION TYPE: XR chest 2V DATE OF EXAM: 05/20/2023 4:15 PM CLINICAL INDICATION:Female, 47 years old with history of R91.8; [facility] COMPARISON: Chest radiographs from 04/30/2022 TECHNIQUE: XR chest 2V Frontal and lateral views of the chest. FINDINGS: Lungs/Pleura: There is no evidence of pleural effusion, focal consolidation, or pneumothorax. Pulmonary vascularity: Unremarkable. Heart/mediastinum: Cardiomediastinal silhouette is unremarkable. Musculoskeletal: No acute osseous pathology. IMPRESSION: No acute cardiopulmonary disease/process.
== END | disposition home or self-care (01) ==
LOC: RADXRMAIN 15:57
PROVIDERS: ATTEND Family Medicine
DX: R91.8 Other nonspecific abnormal finding of lung field (principal)
CPT/HCPCS: 71046

== ENCOUNTER → 2023-06-07 | Outpatient (CLI) | payer MEDICAID ==
--- NOTE | 2023-06-08 09:38 | MM ---
Reason for Exam: Screening (asymptomatic). Last mammogram was performed 2 year(s) and 8 month(s) ago. Patient History: Menarche at age 10. First Full-Term at age 24. Left ovary removed at age 33. Right ovary removed at age 33. Hysterectomy at age 31. Postmenopausal. Patient used Hormonal Contraceptives for 10 years. Paternal grandmother had breast cancer. Risk Values: Caprice 5 year model risk: 1.0%. NCI Lifetime model risk: 10.0%. Prior Study Comparison: 05/01/2015 Bilateral Diagnostic Mammogram, [facility]. 06/11/2016 Bilateral Screening Mammogram, [facility]. 10/18/2020 Bilateral Screening Mammogram, [facility]. Tissue Density: The breast tissue is almost entirely fat. Findings: Analyzed By CAD. There is no suspicious group of microcalcifications or new suspicious mass. Overall Assessment: Negative, BI-RAD 1 Management: Screening Mammogram of both breasts in [address] [facility] will attempt to contact patient to return for supplemental views and ultrasound if indicated. Patient should continue monthly self-breast exams. A clinical breast exam by your physician is recommended on an annual basis. This exam should not preclude additional follow-up of suspicious palpable abnormalities. Note on Caprice scores and lifetime risk: 1. A Caprice score greater than 3% is considered moderate risk. If this is the case, consider specialist referral to assess eligibility for a risk reducing agent. 2. If overall lifetime risk for the development of breast cancer is 20% or higher, the patient may qualify for future screening with alternating mammogram and breast MRI. Electronically signed and approved by: Misael Fair DO
== END | disposition home or self-care (01) ==
LOC: RADMAMWWP 06:48
PROVIDERS: ATTEND Family Medicine
DX: Z12.31 Encounter for screening mammogram for malignant neoplasm of breast (principal); Z78.0 Asymptomatic menopausal state; Z80.3 Family history of malignant neoplasm of breast
CPT/HCPCS: 77063; 77067

== ENCOUNTER 2023-11-05 07:39 | Emergency (ER) | payer MEDICAID ==
[2023-11-05 07:52] VITALS: BP 129/66; PULSE 88; RESP 18; TEMP 98
[2023-11-05] MEDS: ONDANSETRON ODT 4 MG TAB PO STA (08:10)
[2023-11-05] MEDS: KETOROLAC 15 MG/ML 1 ML VIAL IM STA (08:11)
[2023-11-05] MEDS: MORPHINE SULFATE 2 MG/ML SYRINGE IM STA (08:13)
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
--- NOTE | 2023-11-05 08:51 | XR ---
EXAMINATION TYPE: XR Hip LT and AP Pelvis DATE OF EXAM: 11/05/2023 COMPARISON: NONE HISTORY: Pain TECHNIQUE: A single AP view of the pelvis is obtained. Two views of the left hip are obtained. FINDINGS: There is no acute fracture/dislocation evident in the pelvis. SI joints patent. Arthropath y of the symphysis pubis. IMPRESSION: 1. No acute fracture.
--- NOTE | 2023-11-05 08:53 | XR ---
EXAMINATION TYPE: XR KUB DATE OF EXAM: 11/05/2023 COMPARISON: NONE HISTORY: Pain TECHNIQUE: One view abdominal series FINDINGS: The osseous structures are intact. The bowel gas pattern is nonspecific. Surgical clips gallbladder fossa. Linear changes left lung base most typical of atelectasis. IMPRESSION: 1. Nonspecific abdomen.
--- NOTE | 2023-11-05 08:56 | XR ---
EXAMINATION TYPE: XR ribs LT w pa chest xray DATE OF EXAM: 11/05/2023 COMPARISON: NONE HISTORY: Pain TECHNIQUE: Frontal view the chest were submitted. FINDINGS: Heart size normal. No consolidation. No pleural effusion or pneumothorax. Arthropathy of the shoulder. Osseous structures intact. IMPRESSION: No acute displaced rib fracture.
[2023-11-05] MEDS: ONDANSETRON 4 MG ODT STARTER PACK 2 TAB BTL PO STA (09:29)
== END 2023-11-05 09:40 | disposition home or self-care (01) ==
LOC: EC 07:39
DX: S20.312A Abrasion of left front wall of thorax, initial encounter (principal); S10.91XA Abrasion of unspecified part of neck, initial encounter; Z90.49 Acquired absence of other specified parts of digestive tract; V49.9XXA Car occupant (driver) (passenger) injured in unspecified traffic accident, initial encounter; Y92.410 Unspecified street and highway as the place of occurrence of the external cause
CPT/HCPCS: 71101; 73502; 74018; 99284; 96372 ×2; J2270; J1885; S0119

== ENCOUNTER → 2024-08-24 | Outpatient (CLI) | payer MEDICAID ==
--- NOTE | 2024-08-24 17:16 | CA ---
Exercise Stress Test Report Name: KIRT ACOSTA Exam Date: 08/24/2024 09:36 Exam Location: [place] Stress Ht (in): 62 Wt (lb): 265 BSA: 2.15 Ordering Phys: West Lara DO Referring Phys: CHRISTINE Technologist: CORTNEY STEVENS Age: 48 Gender: F : 1975 Procedure CPT: Indications: R00.2 palpitations ICD-10 Codes: Patient History: Medications: SYNTHROID,,,, RIPEROL,,,, SERAQUILL,,,, LOSARTAN,,, Meds past 24 hrs: Pretest Chest Pain: STRESS TEST Mario Protocol Exercise Duration (min:sec): 07:[address] Depressions (mm): Angina Score: Gilman Score: Resting HR (bpm): 92 Peak HR (bpm): 141 Resting BP (mmHg): 120 / 93 Peak BP (mmHg): 176 / 68 MPHR: 170 Target HR: 145 % MPHR: 83 METS: 8.6 Total Dose: Peak Dose: Atropine: Double Product: 20576 BP Response: Stress Termination: Dizziness Stress Symptoms: DIFFICULTY IN BREATHING,DIZZINESS Stress Summary: ECG ANALYSIS Resting ECG: Stress ECG: CONCLUSIONS Indication: Recurrent palpitations, hypertension Patient exercised on a Mario protocol for 7 minutes. Peak heart rate 141 beats minute, normal blood pressure response 8.6 METS of workload achieved No ECG evidence for ischemia No exercise-induced arrhythmias Dr. Armand Rai MD (Electronically Signed) Final Date: 24 August 2024 17:15
== END | disposition home or self-care (01) ==
LOC: RADNMMAIN 08:30
PROVIDERS: ATTEND Family Medicine
DX: R00.2 Palpitations (principal); I10 Essential (primary) hypertension
CPT/HCPCS: 93017

== ENCOUNTER → 2024-08-25 | Outpatient (CLI) | payer MEDICAID ==
--- NOTE | 2024-09-18 16:26 | P.CEMON ---
21 Day Event monitor note: Patient wore an event monitor for 20 days from 08/25/2024 through 09/10/2024. Findings: Patient's baseline heart rate was normal sinus rhythm. There were no signficant atrial fibrillation, atrial flutter, or ventricular tachycardia episodes. There were rare PACs and PVCs There were 10 patient activated events including skipped beat and shortness of breath which mainly corresponded with sinus rhythm and twice with PACs There were 2 episodes of sinus bradycardia with 3.3-second pause and 3.4-second pause during sleeping hours at 4:17 AM and 5:42 AM which were asymptomatic Conclusions: 21-day event monitor showing normal sinus rhythm. Patient activated events corresponded with normal sinus rhythm. 2 episodes of sinus bradycardia with 3.4-second pause during sleeping hours.
--- NOTE | 2024-09-20 08:51 | EM ---
21 Day Event monitor note: Patient wore an event monitor for 20 days from 08/25/2024 through 09/10/2024. Findings: Patient's baseline heart rate was normal sinus rhythm. There were no significant atrial fibrillation, atrial flutter, or ventricular tachycardia episodes. There were rare PACs and PVCs There were 10 patient activated events including skipped beat and shortness of breath which mainly corresponded with sinus rhythm and twice with PACs There were 2 episodes of sinus bradycardia with 3.3-second pause and 3.4-second pause during sleeping hours at 4:17 AM and 5:42 AM which were asymptomatic Conclusions: 21-day event monitor showing normal sinus rhythm. Patient activated events corresponded with normal sinus rhythm. 2 episodes of sinus bradycardia with 3.4-second pause during sleeping hours. [facility]
== END | disposition home or self-care (01) ==
LOC: RADECHMAIN 07:19
PROVIDERS: ATTEND Family Medicine
DX: R00.2 Palpitations (principal); R00.1 Bradycardia, unspecified; I49.9 Cardiac arrhythmia, unspecified
CPT/HCPCS: 93270

== ENCOUNTER → 2024-11-09 | Outpatient (CLI) | payer MEDICAID ==
--- NOTE | 2024-11-09 19:08 | CA ---
Transthoracic Echo Report Name: Rylee Mcgee Age: 48 Gender: F : 1975 Exam Date: 11/09/2024 14:09 Exam Location: [place] Echo Ht (in): 61 Wt (lb): 270 Ordering Physician: Bronson Munroe MD ([id number]) Attending/Referring Phys: Bronson Munroe MD ([id number]) Lumber Piler Alaina Nobles RDCS Procedure CPT: Indications: R00.2 palpitations Cardiac Hx: Technical Quality: Fair Contrast 1: Total Dose (mL): Contrast 2: Total Dose (mL): MEASUREMENTS (Male / Female) Normal Values 2D ECHO LV Diastolic Diameter PLAX 4.8 cm 4.2 - 5.9 / 3.9 - 5.3 cm LV Systolic Diameter PLAX 2.9 cm IVS Diastolic Thickness 1.0 cm 0.6 - 1.0 / 0.6 - 0.9 cm LVPW Diastolic Thickness 1.2 cm 0.6 - 1.0 / 0.6 - 0.9 cm LV Relative Wall Thickness 0.5 RV Internal Dim ED PLAX 2.5 cm LA Systolic Diameter LX 3.6 cm 3.0 - 4.0 / 2.7 - 3.8 cm M-MODE Aortic Root Diameter MM 2.7 cm LA Systolic Diameter MM 3.7 cm LA Ao Ratio MM 1.4 AV Cusp Separation MM 1.9 cm DOPPLER MV Area PHT 2.6 cm??? Mitral E Point Velocity 83.9 cm/s Mitral A Point Velocity 74.8 cm/s Mitral E to A Ratio 1.1 MV Deceleration Time 288.3 ms TR Peak Velocity 256.2 cm/s TR Peak Gradient 26.3 mmHg FINDINGS Left Ventricle Left ventricular ejection fraction is estimated at 55-60 %. Mildly increased posterior wall thickness. Normal left ventricular systolic function with no obvious regional wall motion abnormalities. Left ventricular cavity size normal. Right Ventricle Normal right ventricular size and function. Right Atrium Normal right atrial size. Left Atrium Mild left atrial dilatation. Mitral Valve Structurally normal mitral valve. mild mitral regurgitation. No mitral stenosis. Aortic Valve Trileaflet aortic valve. No aortic valve stenosis or regurgitation. Tricuspid Valve Structurally normal tricuspid valve. No tricuspid stenosis. mild tricuspid regurgitation. Pulmonic Valve Structurally normal pulmonic valve. No pulmonic stenosis. Pericardium No pericardial or pleural effusion. Aorta Normal size aortic root and proximal ascending aorta. CONCLUSIONS 1. Normal left ventricular size and systolic function 2. Mild mitral and tricuspid regurgitation Previewed by: Dr. Nikhil Gaffney MD (Electronically Signed) Final Date: 09 November 2024 19:07
== END | disposition home or self-care (01) ==
LOC: RADECHMAIN 13:47
PROVIDERS: ATTEND Internal Medicine Interventional Cardiology
DX: I08.1 Rheumatic disorders of both mitral and tricuspid valves (principal); R00.2 Palpitations
CPT/HCPCS: 93306